=== PATIENT | female | born 1975 | race Caucasian/White ===

== ENCOUNTER 2017-05-07 19:14 | Emergency (ER) | payer OTHER ==
[2017-05-07] MEDS ORDERED: IBUPROFEN 600 MG TABLET PO ONE (20:20)
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
[2017-05-07] MEDS ORDERED: IBUPROFEN 600 MG TABLET ONE (20:35)
== END 2017-05-07 20:54 | disposition home or self-care (01) ==
LOC: ER 19:14
DX: S50.311A Abrasion of right elbow, initial encounter (principal); S60.811A Abrasion of right wrist, initial encounter; S50.811A Abrasion of right forearm, initial encounter; V87.8XXA Person injured in other specified noncollision transport accidents involving motor vehicle (traffic), initial encounter; Y93.9 Activity, unspecified; Y92.410 Unspecified street and highway as the place of occurrence of the external cause; Z85.41 Personal history of malignant neoplasm of cervix uteri; F41.8 Other specified anxiety disorders